=== PATIENT | male | born 1950 | race Caucasian/White ===

== ENCOUNTER 2019-05-23 09:13 | Day surgery (SDC) | payer MEDICARE ==
[~2019-05-23] VITALS: Ht 182.9 cm; Wt 104.8 kg
[~2019-05-23 09:13] MED LIST: LIPITOR 10MG10 MG; LIPITOR 10MG10 MG PO; MONOPRIL20 MG PO; MULTI VITAMINS1 TAB PO; NORCO 325 MG-51 TAB PO; NORVASC 5MG5 MG/TAB PO; ZIAC 10/6.25M1 UDTAB; ZIAC 10/6.25M1 UDTAB PO
[2019-05-23] MEDS ORDERED: LIPITOR20 MG PO (09:40)
[2019-05-23] MEDS ORDERED: MONOPRIL20 MG PO (09:40)
[2019-05-23] MEDS ORDERED: OLIVE LEAF EXTRACT PO (09:41)
[2019-05-23] MEDS ORDERED: NORVASC 10MG10 MG PO (09:41)
[2019-05-23] MEDS ORDERED: ZEBETA10 MG PO (09:41)
[2019-05-23] MEDS ORDERED: TURMERIC500 MG PO (09:42)
[2019-05-23] MEDS ORDERED: B COMPLEX & B121 TAB PO (09:42)
[2019-05-23] MEDS ORDERED: VITAMINC1000TA PO (09:42)
[2019-05-23] MEDS ORDERED: VITAMIN D 400400 IU PO (09:42)
[2019-05-23 09:43] VITALS: BP 144/80; PULSE 64; TEMP 98.5
[2019-05-23] MEDS ORDERED: OMEGA-3 1000 MG1 CAP PO (09:43)
[2019-05-23] MEDS ORDERED: MULTIPLE VITAMI1 TA5 PO (09:43)
[2019-05-23 11:27] VITALS: BP 124/80; PULSE 68; TEMP 97.8
--- NOTE | 2019-05-23 11:27 | NUR ---
Pt returns from endo procedure. Pt ambulates from cart to recliner with RN assist. Monitors on and alarms set. Call light within reach. Pt alert and answering all questions appropriately. Pt requests Sprite. present in room. Report received from IRMA Hernandez. Pt denies any complaints of pain or nausea.
[2019-05-23 11:36] VITALS: BP 148/80; PULSE 64
[2019-05-23 11:45] VITALS: BP 145/88; PULSE 66
--- NOTE | 2019-05-23 11:50 | NUR ---
Pt taking drink well. No complications voiced by patient.
[2019-05-23 12:00] VITALS: BP 157/88; PULSE 66
--- NOTE | 2019-05-23 12:10 | NUR ---
Discharge instructions given to patient and . All questions answered to their satisfaction. Handed to them are a thank you card, discharge instructions, diagnosis information, procedural photos, and a discharge med sheet.
--- NOTE | 2019-05-23 12:26 | NUR ---
Pt transferred out of hospital via wheelchair and this RN assist to waiting private vehicle driven by .
== END 2019-05-23 12:26 | disposition home or self-care (01) ==
LOC: SDCO 09:13
DX: Z12.11 Encounter for screening for malignant neoplasm of colon (principal); K63.5 Polyp of colon; I10 Essential (primary) hypertension; G47.33 Obstructive sleep apnea (adult) (pediatric); M17.12 Unilateral primary osteoarthritis, left knee; E78.5 Hyperlipidemia, unspecified; G89.29 Other chronic pain; Z86.010 Personal history of colon polyps
CPT/HCPCS: J2704; J7030

== ENCOUNTER → 2020-08-05 | Outpatient (CLI) | payer MEDICARE ==
[~2020-08-05] VITALS: Ht 182.9 cm; Wt 102.9 kg
[~2020-08-05] MED LIST changes: +B COMPLEX & B121 TAB PO; +EDLUAR10 MG SL; +FLOMAX 0.40.4 MG/CAP PO; +LIPITOR20 MG PO; +MULTIPLE VITAMI1 TA5 PO; +NORVASC 10MG10 MG PO; +OLIVE LEAF EXTRACT PO; +OMEGA-3 1000 MG1 CAP PO; +TURMERIC500 MG PO; +VITAMIN D 400400 IU PO; +VITAMINC1000TA PO; +ZEBETA10 MG PO
[2020-08-05 07:32] VITALS: BP 152/83; PULSE 67
[2020-08-05 08:45] VITALS: BP 151/88; PULSE 68
[2020-08-05 09:00] VITALS: BP 121/70; PULSE 73
[2020-08-05 09:15] VITALS: BP 130/78; PULSE 73
== END ==
LOC: COL.RAD 06:51
DX: M47.816 Spondylosis without myelopathy or radiculopathy, lumbar region (principal); M48.07 Spinal stenosis, lumbosacral region; M48.061 Spinal stenosis, lumbar region without neurogenic claudication
CPT/HCPCS: A9585; J2704; J3010